=== PATIENT | female | born 1990 | race Caucasian/White ===

== ENCOUNTER 2020-12-09 04:03 | Emergency (ER) | payer BC ==
[2020-12-09] MEDS ORDERED: Ketorolac 15 MG/ML SDV IM STA (04:29)
[2020-12-09] MEDS ORDERED: Cyclobenzaprine 10 MG Tab PO ONE (04:29)
[2020-12-09] MEDS ORDERED: Lidocaine 5% 700 MG Patch TRDERM ONE (04:30)
--- NOTE | 2020-12-09 04:34 | EDM.PDOC ---
ED HPI GENERAL MEDICAL PROBLEM - General Chief Complaint: Back Pain or Injury Stated Complaint: RIGHT HIP PAIN AND BACK PAIN Time Seen by Provider: 12/09/20 04:11 - History of Present Illness INITIAL COMMENTS - FREE TEXT/NARRATIVE: HISTORY AND PHYSICAL: History of present illness: 30-year-old female with a history of chronic lower back pain who presents to the ER today secondary to exacerbation of her lower back discomfort. Patient reports the pain increased approximately 2 to 3 days ago. Patient has any recent trauma or injury. Patient denies any recent fevers, shakes, chills, nausea, vomiting, diarrhea, dysuria, frequency, urgency, hematuria. Patient denies any Covid symptoms or concerns. Patient has any weakness to her upper or lower extremities. Patient reports the pain is over her right gluteal region. Patient denies any loss of bowel or bladder function. Review of systems: As per history of present illness and below otherwise all systems reviewed and negative. Past medical history: As per history of present illness and as reviewed below otherwise noncontributory. Surgical history: As per history of present illness and as reviewed below otherwise noncontributory. Social history: No reported history of drug abuse. Family history: As per history of present illness and as reviewed below otherwise noncontributory. Physical exam: This patient was seen and evaluated during the 2019 SARS-CoV-2 novel coronavirus pandemic period. Community viral transmission is ongoing at time of this encounter and the emergency department is operating under pandemic response procedures. Constitutional: Patient is oriented to person, place, and time. Appears well- developed and well-nourished. No distress. HEENT: Moist mucous membranes Head: Normocephalic and atraumatic Eyes: Right eye exhibits no discharge. Left eye exhibits no discharge. No scleral icterus Neck: Normal range of motion. No tracheal deviation present. Cardiovascular: Normal rate and regular rhythm. Pulmonary: Effort normal, no respiratory distress. Abdominal: No distention Musculoskeletal: Normal range of motion Neurologic: Alert and oriented to person, place and time. Skin: [place], warm and dry. Psychiatric: Normal mood and affect. Behavior is normal. Judgment and thought content normal. Nursing note and vital signs have been reviewed Patient was tenderness to palpation to her lower over the L4-5 region into her right gluteal area. Patient is neurovascular intact. Patient is able to ambulate without difficulty. Diagnostics: [] Therapeutics: Toradol 30 IM, Flexeril 10 mg p.o., Lidoderm patch Assessment and plan: 30-year-old female who presents ER today secondary to acute exacerbation of her chronic low back pain. Patient be given Toradol 30 mg IM, Flexeril 10 mg p.o. and a Lidoderm patch with a prescription for Flexeril and Lidoderm patch. Reassessment at the time of disposition demonstrates that the patient is in no acute distress. The patient has remained stable throughout the entire ED visit and is without objective evidence for acute process requiring urgent intervention or hospitalization. The patient is stable for discharge, counseling is provided as documented above, discussed symptomatic treatment and specific conditions for return. I have spoken with the patient/caregiver and discussed todays findings, in addition to providing specific details for the plan of care. Questions are answered and there is agreement with the plan. Definitive disposition and diagnosis as appropriate pending reevaluation and review of above. 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 Lower back/ R hip Pain Score (Numeric/FACES): 10 - Related Data Allergies Allergy/AdvReac Type Severity Reaction Status Date / Time amoxicillin [Amoxicillin] Allergy Rash Verified 07/13/13 14:06 orange Allergy Hives Verified 12/09/20 04:24 Home Meds: Home Meds Albuterol [Proventil HFA] 2 puff INH Q4H PRN 08/23/13 [History] Acetaminophen [Tylenol Extra Strength] 1,000 mg PO Q4H PRN 30 Days tab 08/24/13 [Rx] Lanolin [Lansinoh HPA] 40 gm TOP ASDIRECTED PRN #1 crm 08/24/13 [Rx] Cyclobenzaprine [Flexeril] 10 mg PO TID PRN #20 tab 12/09/20 [Rx] Ibuprofen 600 mg PO Q6HR PRN #30 tablet 12/09/20 [Rx] Lidocaine 5% [Lidoderm 5%] 1 patch TOP DAILY PRN #7 patch 12/09/20 [Rx] ED ROS GENERAL - Review of Systems Review Of Systems: See Below ED EXAM, GENERAL - Physical Exam Exam: See Below Course - Vital Signs Last Recorded V/S: Last Vital Signs Temp 97.3 F 12/09/20 04:25 Pulse 78 12/09/20 04:25 Resp 20 12/09/20 04:25 BP 133/85 12/09/20 04:25 Pulse Ox 97 12/09/20 04:25 - Orders/Labs/Meds Orders: Active Orders 24 hr Category Date Time Status Cyclobenzaprine [Flexeril] Med 12/09/20 04:29 Once 10 mg PO ONETIME ONE Ketorolac [Toradol] Med 12/09/20 04:29 Stat 30 mg IM Q6H STA Lidocaine 5% [Lidoderm 5%] Med 12/09/20 04:30 Once 700 mg TRDERM ONETIME ONE Medication Orders Cyclobenzaprine HCl (Cyclobenzaprine 10 Mg Tab) 10 mg PO ONETIME ONE Stop: 12/09/20 04:30 Ketorolac Tromethamine (Ketorolac 15 Mg/Ml Sdv) 30 mg IM Q6H STA Stop: 12/09/20 04:30 Lidocaine (Lidocaine 5% 700 Mg Patch) 700 mg TRDERM ONETIME ONE Stop: 12/09/20 04:31 Meds: Medications Generic Name Dose Route Start Last Admin Trade Name Freq PRN Reason Stop Dose Admin Cyclobenzaprine HCl 10 mg 12/09/20 04:29 Cyclobenzaprine 10 Mg Tab PO 12/09/20 04:30 ONETIME ONE Ketorolac Tromethamine 30 mg 12/09/20 04:29 Ketorolac 15 Mg/Ml Sdv IM 12/09/20 04:30 Q6H STA Lidocaine 700 mg 12/09/20 04:30 Lidocaine 5% 700 Mg Patch TRDERM 12/09/20 04:31 ONETIME ONE Departure - Departure Time of Disposition: 04:32 Disposition: Home, Self-Care 01 Condition: Good Clinical Impression: Low back pain Qualifiers: Chronicity: acute Back pain laterality: right Sciatica presence: with sciatica Sciatica laterality: sciatica of right side Qualified Code(s): M54.41 - Lumbago with sciatica, right side - Discharge Information Instructions: Managing Chronic Back Pain, Acute Back Pain, Adult Referrals: PCP,None [Primary Care Provider] - Additional Instructions: You were seen and evaluated in ER today secondary to an acute exacerbation of your lower back pain. You have been given a Lidoderm patch as well as Flexeril and a injection of Toradol. You will be given a prescription for Flexeril, Motrin and Lidoderm. Please make an appointment to follow-up with your family doctor. The following information is given to patients seen in the emergency department who are being discharged to home. This information is to outline your options for follow-up care. We provide all patients seen in our emergency department with a follow-up referral. The need for follow-up, as well as the timing and circumstances, are variable depending upon the specifics of your emergency department visit. If you don't have a primary care physician on staff, we will provide you with a referral. We always advise you to contact your personal physician following an emergency department visit to inform them of the circumstance of the visit and for follow-up with them and/or the need for any referrals to a consulting specialist. The emergency department will also refer you to a specialist when appropriate. This referral assures that you have the opportunity for follow-up care with a specialist. All of these measure are taken in an effort to provide you with optimal care, which includes your follow-up. Under all circumstances we always encourage you to contact your private physician who remains a resource for coordinating your care. When calling for follow-up care, please make the office aware that this follow-up is from your recent emergency room visit. If for any reason you are refused follow-up, please contact the [facility] Emergency Department at and asked to speak to the emergency department charge nurse. [facility] - Primary [facility] [address] [place] [address] [id number] [address] [address] Sepsis Event Note (ED) - Evaluation Sepsis Screening Result: No Definite Risk - Focused Exam Vital Signs: Vital Signs Temp Pulse Resp BP Pulse Ox 12/09/20 04:25 97.3 F 78 20 133/85 97 - My Orders Last 24 Hours: My Active Orders 12/09/20 04:29 Cyclobenzaprine [Flexeril] 10 mg PO ONETIME ONE Ketorolac [Toradol] 30 mg IM Q6H STA 12/09/20 04:30 Lidocaine 5% [Lidoderm 5%] 700 mg TRDERM ONETIME ONE - Assessment/Plan Last 24 Hours: My Active Orders 12/09/20 04:29 Cyclobenzaprine [Flexeril] 10 mg PO ONETIME ONE Ketorolac [Toradol] 30 mg IM Q6H STA 12/09/20 04:30 Lidocaine 5% [Lidoderm 5%] 700 mg TRDERM ONETIME ONE
== END 2020-12-09 04:58 | disposition home or self-care (01) ==
LOC: MW.ED 04:03
DX: M54.41 Lumbago with sciatica, right side (principal); Z88.0 Allergy status to penicillin; Z91.018 Allergy to other foods; Z79.899 Other long term (current) drug therapy
CPT/HCPCS: 96372; 99283; A9270; J1885

== ENCOUNTER 2023-01-29 12:36 | Emergency (ER) | payer BC ==
[2023-01-29] MEDS ORDERED: Diphtheria,Pertussis(Acell),Tetanus Vaccine 0.5 ML Syringe IM ONE (13:11)
[2023-01-29] MEDS ORDERED: Lidocaine 1% PF 2 ML SDV INJECT ONE (13:16)
== END 2023-01-29 13:33 | disposition home or self-care (01) ==
LOC: MW.ED 12:36
DX: S61.215A Laceration without foreign body of left ring finger without damage to nail, initial encounter (principal); I10 Essential (primary) hypertension; J45.909 Unspecified asthma, uncomplicated; E66.9 Obesity, unspecified; Z68.42 Body mass index [BMI] 45.0-49.9, adult; Z23 Encounter for immunization; Z88.0 Allergy status to penicillin; Z91.018 Allergy to other foods; Z79.899 Other long term (current) drug therapy; W25.XXXA Contact with sharp glass, initial encounter
CPT/HCPCS: 12001; 90471; 90715; 99282-25; 99283; J3490